=== PATIENT | male | born 1975 ===

== ENCOUNTER → 2023-09-14 10:04 | Outpatient (CLI) | payer OTHER, SELFPAY ==
--- NOTE | 2023-09-14 | DI.US.S_ITS ---
PROCEDURE: US SCROTUM INDICATIONS: genitourinary symptoms TECHNIQUE: Real-time scanning was performed of the scrotum and testicles, with image documentation. Color and pulse Doppler interrogation was performed of both testicles. COMPARISON: None. FINDINGS: Right: Testicle is normal in size at 2.9 x 3.8 x 2.3 cm, and homogenous in echotexture. Epididymis is normal in overall size and morphology. No varicocele. There is a hydrocele with internal septations. Overlying scrotal skin is normal in thickness. Left: Testicle is normal in size at 3.0 x 1.8 x 3.0 cm, and homogeneous in echotexture. Epididymis is normal in overall size and morphology. There is a 2 mm epididymal cyst. No varicocele. There is a simple appearing hydrocele. Overlying scrotal skin is normal in thickness. Doppler: Color and pulse Doppler demonstrate normal and symmetric arterial flow in both testicles. IMPRESSION: 1. Small bilateral hydroceles. The right hydrocele has a septated appearance. 2. No hyperemia of the testicles or epididymi to suggest infection. Dictated by: Carrie Azul M.D. on 09/14/2023 at 14:01 Approved by: Carrie Azul M.D. on 09/14/2023 at 14:03
--- NOTE | 2023-09-14 | DI.US.S_ITS ---
LIMITED ULTRASOUND OF LEFT BREAST: 09/14/2023 CLINICAL: Palpable left breast lump. Comparison is made to exam dated: 09/14/2023 mammogram - [facility]. Color flow and real-time ultrasound of the left breast 6-12 o'clock region were performed. Castro scale images of the real-time examination were reviewed. No significant abnormalities were seen sonographically in the left medial breast. IMPRESSION: NEGATIVE There is no sonographic evidence of malignancy. No mass. Exam findings were conveyed to the patient. Patient is advised to monitor for significant change. Clinical follow-up as needed. This exam was interpreted at Station ID: [id number]. Electronically Signed By: Mg Sellers M.D. slc/:09/14/2023 11:46:52 letter sent: Normal Exam Ultrasound BI-RADS: 1 Negative
--- NOTE | 2023-09-14 | DI.MG.S_ITS ---
MALE BILATERAL DIGITAL DIAGNOSTIC MAMMOGRAM 3D/2D: 09/14/2023 CLINICAL: Palpable left breast lump by physician. No prior exams were available for comparison. No significant masses, calcifications, or other findings are seen in either breast. No mass identified. IMPRESSION: INCOMPLETE: NEEDS ADDITIONAL IMAGING EVALUATION No mammographic evidence of malignancy. A targeted ultrasound is recommended. This exam was interpreted at Station ID: [id number]. Electronically Signed By: Mg Sellers M.D. slc/:09/14/2023 11:11:08 ACR BI-RADS Category 0: Incomplete [id number]
--- NOTE | 2023-09-14 | DI.RAD.S_ITS ---
PROCEDURE: XR KNEE LT 1TO2V INDICATIONS: left knee pain, left knee effusion TECHNIQUE: 2 views of the knee were acquired. COMPARISON: None. FINDINGS: Bones: No fractures or dislocations. No suspicious bony lesions. Mild degenerative change with mild medial compartment joint space loss. Soft tissues: Trace joint effusion. No suspicious soft tissue calcifications. IMPRESSION: No acute bony abnormality. Mild degenerative change. Dictated by: Og Mijares M.D. on 09/14/2023 at 14:04 Approved by: Og Mijares M.D. on 09/14/2023 at 14:05
== END ==
PROVIDERS: PCP Naturopath; Referring Provider Naturopath; Visit Provider Naturopath
DX: R92.2 Inconclusive mammogram (principal); N63.20 Unspecified lump in the left breast, unspecified quadrant; Z15.01 Genetic susceptibility to malignant neoplasm of breast; Z80.3 Family history of malignant neoplasm of breast; N43.3 Hydrocele, unspecified; R39.89 Other symptoms and signs involving the genitourinary system; M25.562 Pain in left knee; M25.462 Effusion, left knee; R68.89 Other general symptoms and signs; Z80.9 Family history of malignant neoplasm, unspecified
CPT/HCPCS: 73560; 76642; 76870; 77066; G0279